=== PATIENT | male | born 1955 | race Caucasian/White ===

== ENCOUNTER 2020-11-27 08:55 | Outpatient (CLI) | payer OTHER | END 2020-11-27 08:56 | disposition home or self-care (01) | LOC: NUCLEAR 08:55 | PROVIDERS: ATTEND Internal Medicine | DX: L97.514 Non-pressure chronic ulcer of other part of right foot with necrosis of bone (principal) | CPT/HCPCS: 78306; A9503 ==

== ENCOUNTER 2023-08-24 07:08 | Outpatient (CLI) | payer OTHER | END 2023-08-24 07:16 | disposition home or self-care (01) | LOC: TOM 07:08 | PROVIDERS: ATTEND Internal Medicine Gastroenterology | DX: Z12.11 Encounter for screening for malignant neoplasm of colon (principal); K56.600 Partial intestinal obstruction, unspecified as to cause ==